=== PATIENT | female | born 1965 | race Caucasian/White ===

== ENCOUNTER 2017-02-28 04:56 | Inpatient (IN) | payer OTHER, MEDICARE ==
[2017-02-28] VITALS (9 sets, daily range): BP systolic 90–160; BP diastolic 52–82; PULSE 74–137; RESP 14–20; TEMP 98–99.7; O2SAT 98–100
[~2017-02-28] VITALS: Ht 160 cm; Wt 78.7 kg
[~2017-02-28 04:56] MED LIST: CEFU1TAB18 PO; CHOL50006 PO; CYMB30CA PO; HUMSS; INSULIN PUMP; LIOT5 PO; LIOT5TAB PO; LORA-392 PO; LORA-474 PO; MECL25 PO; ONDA4; ONDA4 PO; OXYC1SOL5 PO; SELE200T18 PO; SYNT75TA PO; TRAM50TA PO; VITA100020 PO
[2017-02-28] MEDS ORDERED: SODIUM CHLOR 0.9% 1000 ML INJ 1,000 ML IV ONE ×2 (05:11→05:41)
[2017-02-28] MEDS ORDERED: SODIUM CHLORIDE 0.9% FLUSH 10 ML FLUSH IVF PRN (05:15)
[2017-02-28] MEDS ORDERED: ONDANSETRON HCL 4 MG/2 ML VIAL IV PUSH ONE (05:15)
--- NOTE | 2017-02-28 05:15 | PD ---
HPI Chief Complaint: generalized malaise Time Seen by Provider: 05:05 Travel History International Travel<30 days: No Contact w/Intl Traveler<30days: No Traveled to known affect area: No History of Present Illness HPI 51-year-old female with history of insulin-dependent diabetes with insulin pump , there for evaluation of chills, cough, sore throat, nausea, vomiting, diarrhea , and abdominal pain. Symptoms started yesterday with sore throat and cough which was productive of yellowish sputum. She also been to the [facility] yesterday. She did not check her temperature and is unsure if she has had a fever. She woke up this morning and had 2 episodes of vomiting as well as several episodes of loose bowel movements with complaints of diffuse abdominal pain which is described as cramping, moderate, worse with movements and palpation. History of hysterectomy and cholecystectomy. She denies urinary symptoms. No vaginal bleeding or discharge. Her daughter is here and was recently diagnosed with pneumonia and pleurisy. Patient is also describing some substernal chest discomfort with coughing and worse with palpation. She denies history of cardiac disease. No history of DVT or PE. Her cough is productive of yellowish sputum. No hemoptysis. PFSH Past Medical History Autoimmune Disease: Yes Depression: Yes Cancer: No Cardiovascular Problems: Yes (BP RUNS LOW) Diabetes: Yes Diminished Hearing: No Endocrine: Yes (SHANE'S THYROIDITIS) Fibromyalgia: Yes Gastrointestinal Disorders: Yes (CILIAC) Genitourinary: No Immune Disorder: Yes Musculoskeletal: Yes (FIBROMYALGIA) Neurologic: Yes Psychiatric: Yes Reproductive: No Respiratory: No Thyroid Disease: Yes (HYPOTHRYROID) Past Surgical History Abdominal Surgery: Yes (CHOLECYSTECTOMY) Body Medical Devices: INSULIN PUMP Cholecystectomy: Yes Genitourinary Surgery: Yes (BLADDER SLING) Gynecologic Surgery: Yes (HYSTERECTOMY) Hysterectomy: Yes Insulin Pump: Yes Other Surgery: Yes (BLADDER MESH) Social History Alcohol Use: No Tobacco 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 Tirosint (Levothyroxine Sodium) 125 Mcg Cap 125 Mcg PO DAILY Tramadol (Tramadol HCl) 50 Mg Tab 50 Mg PO Q4H PRN Cymbalta DR (Duloxetine HCl) 30 Mg Capdr 30 Mg PO DAILY Review of Systems Except as stated in HPI: all other systems reviewed are Neg Physical Exam Narrative GENERAL: Well-developed, well-nourished, comfortable, no apparent distress. SKIN: Focused skin assessment warm/dry. No rash. HEAD: Atraumatic. Normocephalic. EYES: Pupils equal and round. No scleral icterus. No injection or drainage. ENT: No nasal bleeding or discharge. Mucous membranes pink and dry. Pharynx is erythematous without tonsillar exudates. Uvula is midline. Normal phonation. No drooling or stridor. NECK: Trachea midline. No JVD. No nuchal rigidity. CARDIOVASCULAR: Tachycardic, rate 130s, regular. RESPIRATORY: No accessory muscle use. Clear to auscultation. Breath sounds equal bilaterally. GASTROINTESTINAL: Abdomen soft, nondistended. Moderate diffuse tenderness without peritoneal signs. Small periumbilical hernia that is easily reducible. Normal bowel sounds. MUSCULOSKELETAL: No obvious deformities. No clubbing. No cyanosis. No edema. NEUROLOGICAL: Awake and alert. No obvious cranial nerve deficits. Motor grossly within normal limits. Normal speech. PSYCHIATRIC: Appropriate mood and affect; insight and judgment normal. Data Data Last Documented VS Vital Signs Date Time Temp Pulse Resp B/P (MAP) Pulse Ox O2 Delivery O2 Flow Rate FiO2 02/28/17 05:58 111 16 138/70 (92) 98 Room Air 02/28/17 05:01 98.6 Orders Orders Electrocardiogram (02/28/17 05:11) Ckmb (Isoenzyme) Profile (02/28/17 05:11) Complete Blood Count With Diff (02/28/17 05:11) Comprehensive Metabolic Panel (02/28/17 05:11) Magnesium (Mg) (02/28/17 05:11) Prothrombin Time / Inr (Pt) (02/28/17 05:11) Act Partial Throm Time (Ptt) (02/28/17 05:11) Troponin I (02/28/17 05:11) Chest, Single Ap (02/28/17 05:11) Ecg Monitoring (02/28/17 05:11) Iv Access Insert/Monitor (02/28/17 05:11) Oximetry (02/28/17 05:11) Sodium Chloride 0.9% Flush (Ns Flush) (02/28/17 05:15) Beta Hydroxybutyrate (Acetone) (02/28/17 05:11) Urinalysis - C+S If Indicated (02/28/17 05:11) Sodium Chlor 0.9% 1000 Ml Inj (Ns 1000 M (02/28/17 05:11) Sodium Chlor 0.9% 1000 Ml Inj (Ns 1000 M (02/28/17 05:41) Lipase (02/28/17 05:11) Ondansetron Inj (Zofran Inj) (02/28/17 05:15) Influenzae A/B Antigen (02/28/17 05:12) Group A Rapid Strep Screen (02/28/17 05:12) Ct Abd/Pel W Iv Contrast(Rout) (02/28/17 05:17) Diatrizoate Liq ( Gastroview Liq) (02/28/17 05:30) Oral Contrast - Adult (02/28/17 05:19) Strep Culture (Group A) (02/28/17 05:42) Labs Laboratory Tests Test 02/28/17 05:42 02/28/17 07:13 White Blood Count 4.6 TH/MM3 Red Blood Count 4.90 MIL/MM3 Hemoglobin 15.1 GM/DL Hematocrit 45.5 % Mean Corpuscular Volume 92.9 FL Mean Corpuscular Hemoglobin 30.9 PG Mean Corpuscular Hemoglobin Concent 33.2 % Red Cell Distribution Width 12.9 % Platelet Count 169 TH/MM3 Mean Platelet Volume 8.0 FL Neutrophils (%) (Auto) 76.3 % Lymphocytes (%) (Auto) 10.9 % Monocytes (%) (Auto) 9.0 % Eosinophils (%) (Auto) 0.8 % Basophils (%) (Auto) 3.0 % Neutrophils # (Auto) 3.6 TH/MM3 Lymphocytes # (Auto) 0.5 TH/MM3 Monocytes # (Auto) 0.4 TH/MM3 Eosinophils # (Auto) 0.0 TH/MM3 Basophils # (Auto) 0.1 TH/MM3 CBC Comment DIFF FINAL Differential Comment Prothrombin Time 9.6 SEC Prothromb Time International Ratio 0.9 RATIO Activated Partial Thromboplast Time 27.3 SEC Blood Urea Nitrogen 9 MG/DL Creatinine 0.73 MG/DL Random Glucose 216 MG/DL Total Protein 8.0 GM/DL Albumin 3.9 GM/DL Calcium Level 8.8 MG/DL Magnesium Level 2.1 MG/DL Alkaline Phosphatase 94 U/L Aspartate Amino Transf (AST/SGOT) 56 U/L Alanine Aminotransferase (ALT/SGPT) 45 U/L Total Bilirubin 0.6 MG/DL Sodium Level 135 MEQ/L Potassium Level 4.1 MEQ/L Chloride Level 100 MEQ/L Carbon Dioxide Level 24.9 MEQ/L Anion Gap 10 MEQ/L Estimat Glomerular Filtration Rate 84 ML/MIN Total Creatine Kinase 48 U/L Troponin I LESS THAN 0.02 NG/ML Lipase 79 U/L B-Hydroxybutyrate 0.82 MMOL/L [facility] Medical Decision Making Medical Screen Exam Complete: Yes Emergency Medical Condition: Yes Medical Record Reviewed: Yes Differential Diagnosis Influenza, viral illness, gastroenteritis, URI, pneumonia, bronchitis, strep pharyngitis, dehydration, DKA, acute intra-abdominal/surgical process. Narrative Course Initial vital signs show heart rate 137, blood pressure 112/82, pulse ox 100% on room air, oral temp of 98.6F. CBC: WBC 4.6, hemoglobin 15.1, hematocrit 45.5, platelets 169, neutrophils 76.3% . CMP is remarkable for random glucose 216, otherwise unremarkable. Bicarbonate is normal at 24.9. Cardiac enzymes are negative. Lipase is 79. Beta hydroxybutyrate is 0.82. At approximately 7:00 AM at the end of my shift the patient was signed out to Dr. Mane to follow up with CT abdomen pelvis and disposition the patient. At time of signout the patient points out an area on her right buttocks of erythema. There is some warmth and erythema without fluctuance or induration. No purulent drainage. There is a slight cellulitis. No ulceration. Patient will be started on bactrim for this. Scripts Sulfamethoxazole-Trimethoprim (Bactrim DS) 800-160 Mg Tab 1 TAB PO BID for Infection, #20 TAB 0 Refills Prov: Jorge Quintero MD 02/28/17 Jorge Quintero MD Feb 28, 2017 05:15
[2017-02-28] MEDS ORDERED: TIRO125C PO (05:24)
[2017-02-28] MEDS ORDERED: TRAM50TA PO (05:24)
[2017-02-28] MEDS ORDERED: NOVOLOGP2 SQ (05:24)
[2017-02-28] MEDS ORDERED: CYMB30CA PO (05:24)
[2017-02-28] MEDS ORDERED: DIATRIZOATE MEGLUM/DIATRIZOATE SOD 9 ML CUP PO ONE (05:30)
[2017-02-28 05:51] LABS: AUTOMATED NEUTROPHIL # 3.6 TH/MM3 (1.8-7.7); BASOPHIL # 0.1 TH/MM3 (0-0.2); EOSINOPHIL % 0.8 % (0.0-4.0); HEMATOCRIT 45.5 % (35.0-46.0); HEMOGLOBIN 15.1 GM/DL (11.6-15.3); LYMPH % 10.9 % (9.0-44.0); LYMPHOCYTE # 0.5 TH/MM3 (1.0-4.8); MEAN CELL VOLUME 92.9 FL (80.0-100.0); MEAN CORPUSCULAR HEMOGLOBIN 30.9 PG (27.0-34.0); MEAN CORPUSCULAR HGB CONC 33.2 % (32.0-36.0); MONOCYTE # 0.4 TH/MM3 (0-0.9); NEUT % 76.3 % (16.0-70.0); PLATELET COUNT 169 TH/MM3 (150-450); RED CELL DISTRIBUTION WIDTH 12.9 % (11.6-17.2); WHITE BLOOD COUNT 4.6 TH/MM3 (4.0-11.0)
[2017-02-28 05:59] LABS: CHLORIDE 100 MEQ/L (98-107); SODIUM (NA) 135 MEQ/L (136-145)
[2017-02-28 06:03] LABS: ALBUMIN 3.9 GM/DL (3.4-5.0); BICARBONATE 24.9 MEQ/L (21.0-32.0); BLOOD UREA NITROGEN 9 MG/DL (7-18); CALCIUM 8.8 MG/DL (8.5-10.1); GLUCOSE,RANDOM 216 MG/DL (74-106); INTERNATIONAL NORMALIZED RATIO 0.9 RATIO; LIPASE 79 U/L (73-393); MAGNESIUM 2.1 MG/DL (1.5-2.5); PROTHROMBIN TIME - PATIENT 9.6 SEC (9.8-11.6)
[2017-02-28 06:06] LABS: ALT (GPT) 45 U/L (10-53); AST (GOT) 56 U/L (15-37); CREATININE 0.73 MG/DL (0.50-1.00); GLOMERULAR FILTRATION RATE 84 ML/MIN (>89)
--- NOTE | 2017-02-28 06:06 | RADRPT ---
EXAM DATE/TIME: 02/28/2017 05:46 [facility] COMPARISON: CHEST SINGLE AP, June 15, 2015, 13:20. INDICATIONS : Chest pain. MEDICAL HISTORY : Diabetes mellitus type 1. vertigo, Hashimotos, thyroidis SURGICAL HISTORY : None. ENCOUNTER: Initial ACUITY: 1 day PAIN SCORE: 4/10 LOCATION: Bilateral chest FINDINGS: 2 portable frontal views of the chest show lungs to be hyperaerated. Lungs are clear. No effusions. C alcified granuloma left upper lobe. Heart is normal in size. Bony structures are unremarkable. CONCLUSION: Hyperinflation suggesting COPD. No acute infiltrate or effusion. Lyle Terry Jr., MD on February 28, 2017 at 6:04 Board Certified Radiologist. This report was verified electronically.
[2017-02-28 06:08] LABS: TOTAL BILIRUBIN ADULT 0.6 MG/DL (0.2-1.0)
[2017-02-28 06:09] LABS: ALKALINE PHOSPHATASE 94 U/L (45-117)
[2017-02-28 06:11] LABS: TROPONIN I LESS THAN 0.02 NG/ML (0.02-0.05)
[2017-02-28 07:17] LABS: BILIRUBIN, URINE NEG (NEG); BLOOD, URINE NEG (NEG); GLUCOSE,URINE 500 mg/dL (NEG); KETONE, URINE TRACE mg/dL (NEG); NITRITE,URINE NEG (NEG); URINE LEUKOCYTE ESTERASE NEG (NEG)
[2017-02-28] MEDS ORDERED: BACT800T5 PO (07:24)
[2017-02-28 07:26] LABS: URINE COLOR STRAW (YELLW/STRAW)
[2017-02-28 07:27] LABS: BACTERIA, URINE RARE /hpf; SQUAMOUS EPITHELIAL CELL URINE 0-5 /hpf (0-5); WBC, URINE 0-2 /hpf (0-5)
[2017-02-28] MEDS ORDERED: IOHEXOL 350 MG/ML 10 ML VIAL (for RAD DIAG) IVCONTRAST ONE (07:35)
--- NOTE | 2017-02-28 07:55 | RADRPT ---
EXAM DATE/TIME: 02/28/2017 07:23 [facility] COMPARISON: No previous studies available for comparison. INDICATIONS : Bilateral lower quadrant pain. Right groin pain. Nausea, vomiting, diarrhea, and weakness. IV CONTRAST: 85 cc Omnipaque 350 (iohexol) IV ORAL CONTRAST: Partial prescribed oral contrast ingested. RADIATION DOSE: 11.32 CTDIvol (mGy) MEDICAL HISTORY : Irritiable bowel syndrome. Diabetes mellitus type 2. SURGICAL HISTORY : Hysterectomy. Cholecystectomy.Bladder sling. ENCOUNTER: Initial ACUITY: 2 days PAIN SCALE: 5/10 LOCATION: Bilateral lower quadrant TECHNIQUE: Volumetric scanning of the abdomen and pelvis was performed. Using automated exposure control and ad justment of the mA and/or kV according to patient size, radiation dose was kept as low as reasonably achievable to obtain optimal diagnostic quality images. DICOM format image data is available electro nically for review and comparison. FINDINGS: LOWER LUNGS: The visualized lower lungs are clear. LIVER: Homogeneous density without lesion. There is no dilation of the biliary tree. No calcified gallston es. SPLEEN: Normal size without lesion. PANCREAS: Within normal limits. KIDNEYS: Normal in size and shape. There is no mass, stone or hydronephrosis. ADRENAL GLANDS: Within normal limits. VASCULAR: There is no aortic aneurysm. BOWEL/MESENTERY: Appendix is distended and fluid-filled and has mild mucosal enhancement. However, minimal wall thicke jeremy and periappendiceal stranding. No abscess, perforation or obstruction. ABDOMINAL WALL: Within normal limits. RETROPERITONEUM: There is no lymphadenopathy. BLADDER: No wall thickening or mass. REPRODUCTIVE: There are bilateral ovarian cysts and measured 22 mm on the right and 19 mm on the left. Previous hys terectomy. INGUINAL: There is no lymphadenopathy or hernia. MUSCULOSKELETAL: Within normal limits for patient age. CONCLUSION: 1. CT findings consistent with early or mild acute appendicitis in the proper clinical setting. 2. Bilateral ovarian cysts. Previous hysterectomy. There is no free fluid or perceptible adnexal infl ammatory changes. Hira Zhang MD on February 28, 2017 at 7:48 Board Certified Radiologist. This report was verified electronically.
--- NOTE | 2017-02-28 08:26 | PD ---
Data Data Last Documented VS Vital Signs Date Time Temp Pulse Resp B/P (MAP) Pulse Ox O2 Delivery O2 Flow Rate FiO2 02/28/17 05:58 111 16 138/70 (92) 98 Room Air 02/28/17 05:01 98.6 Orders Orders Electrocardiogram (02/28/17 05:11) Ckmb (Isoenzyme) Profile (02/28/17 05:11) Complete Blood Count With Diff (02/28/17 05:11) Comprehensive Metabolic Panel (02/28/17 05:11) Magnesium (Mg) (02/28/17 05:11) Prothrombin Time / Inr (Pt) (02/28/17 05:11) Act Partial Throm Time (Ptt) (02/28/17 05:11) Troponin I (02/28/17 05:11) Chest, Single Ap (02/28/17 05:11) Ecg Monitoring (02/28/17 05:11) Iv Access Insert/Monitor (02/28/17 05:11) Oximetry (02/28/17 05:11) Sodium Chloride 0.9% Flush (Ns Flush) (02/28/17 05:15) Beta Hydroxybutyrate (Acetone) (02/28/17 05:11) Urinalysis - C+S If Indicated (02/28/17 05:11) Sodium Chlor 0.9% 1000 Ml Inj (Ns 1000 M (02/28/17 05:11) Sodium Chlor 0.9% 1000 Ml Inj (Ns 1000 M (02/28/17 05:41) Lipase (02/28/17 05:11) Ondansetron Inj (Zofran Inj) (02/28/17 05:15) Influenzae A/B Antigen (02/28/17 05:12) Group A Rapid Strep Screen (02/28/17 05:12) Ct Abd/Pel W Iv Contrast(Rout) (02/28/17 05:17) Diatrizoate Liq ( Gastroview Liq) (02/28/17 05:30) Oral Contrast - Adult (02/28/17 05:19) Strep Culture (Group A) (02/28/17 05:42) Iohexol 350 Inj (Omnipaque 350 Inj) (02/28/17 07:35) Ondansetron Inj (Zofran Inj) (02/28/17 08:30) Ampicillin-Sulbactam Inj (Unasyn Inj) (02/28/17 08:30) Admit Order (Ed Use Only) (02/28/17 08:21) Consult Kianna Nfs (02/28/17 ) Labs Laboratory Tests Test 02/28/17 05:42 02/28/17 07:13 White Blood Count 4.6 TH/MM3 Red Blood Count 4.90 MIL/MM3 Hemoglobin 15.1 GM/DL Hematocrit 45.5 % Mean Corpuscular Volume 92.9 FL Mean Corpuscular Hemoglobin 30.9 PG Mean Corpuscular Hemoglobin Concent 33.2 % Red Cell Distribution Width 12.9 % Platelet Count 169 TH/MM3 Mean Platelet Volume 8.0 FL Neutrophils (%) (Auto) 76.3 % Lymphocytes (%) (Auto) 10.9 % Monocytes (%) (Auto) 9.0 % Eosinophils (%) (Auto) 0.8 % Basophils (%) (Auto) 3.0 % Neutrophils # (Auto) 3.6 TH/MM3 Lymphocytes # (Auto) 0.5 TH/MM3 Monocytes # (Auto) 0.4 TH/MM3 Eosinophils # (Auto) 0.0 TH/MM3 Basophils # (Auto) 0.1 TH/MM3 CBC Comment DIFF FINAL Differential Comment Prothrombin Time 9.6 SEC Prothromb Time International Ratio 0.9 RATIO Activated Partial Thromboplast Time 27.3 SEC Blood Urea Nitrogen 9 MG/DL Creatinine 0.73 MG/DL Random Glucose 216 MG/DL Total Protein 8.0 GM/DL Albumin 3.9 GM/DL Calcium Level 8.8 MG/DL Magnesium Level 2.1 MG/DL Alkaline Phosphatase 94 U/L Aspartate Amino Transf (AST/SGOT) 56 U/L Alanine Aminotransferase (ALT/SGPT) 45 U/L Total Bilirubin 0.6 MG/DL Sodium Level 135 MEQ/L Potassium Level 4.1 MEQ/L Chloride Level 100 MEQ/L Carbon Dioxide Level 24.9 MEQ/L Anion Gap 10 MEQ/L Estimat Glomerular Filtration Rate 84 ML/MIN Total Creatine Kinase 48 U/L Troponin I LESS THAN 0.02 NG/ML Lipase 79 U/L B-Hydroxybutyrate 0.82 MMOL/L Urine Collection Type CLEAN CATCH Urine Color STRAW Urine Turbidity CLEAR Urine pH 6.0 Urine Specific [place] 1.005 Urine Protein NEG mg/dL Urine Glucose (UA) 500 mg/dL Urine Ketones TRACE mg/dL Urine Occult Blood NEG Urine Nitrite NEG Urine Bilirubin NEG Urine Leukocyte Esterase NEG Urine WBC 0-2 /hpf Urine Squamous Epithelial Cells 0-5 /hpf Urine Bacteria RARE /hpf Microscopic Urinalysis Comment CULT NOT INDICATED MDM Supervised Visit with [facility]ON: No Narrative Course This case checked out to me at [address] Quintero. I have reviewed the entirety of the workup with the patient and reevaluated her. She is nauseous and vomiting now. Her abdomen reveals right lower quadrant tenderness. CT scan suggests appendicitis given the fluid-filled dilated appendix with a bit of stranding around it. I reviewed in detail with Dr. Alvarez, general surgeon. He will plan for appendectomy here. He recommends medical admission and I have reviewed with Dr. Ann who will admit. I'm going to recommend she cut her basal insulin rate and half given that she will be nothing by mouth for a while. I gave her dose of Zofran and IV Unasyn Diagnosis Primary Impression: Acute appendicitis Qualified Codes: K35.3 - Acute appendicitis with localized peritonitis Additional Impression: Diabetes mellitus type 1 Qualified Codes: E10.9 - Type 1 diabetes mellitus without complications Admitting Information Admitting Physician Requests: Admit Scripts Sulfamethoxazole-Trimethoprim (Bactrim DS) 800-160 Mg Tab 1 TAB PO BID for Infection, #20 TAB 0 Refills Prov: Jorge Quintero MD 02/28/17 Matt Mane MD Feb 28, 2017 08:26
[2017-02-28] MEDS ORDERED: ONDANSETRON HCL 4 MG/2 ML VIAL IVP ONE (08:30)
[2017-02-28] MEDS ORDERED: AMPICILLIN-SULBACTAM INJ 3 GM in SODIUM CHLORIDE 0.9% INJ 100 ML IV ONE (08:30)
[2017-02-28] MEDS ORDERED: SODIUM CHLORIDE 0.9% FLUSH 10 ML FLUSH IV FLUSH PRN (09:15)
[2017-02-28] MEDS ORDERED: MORPHINE SULFATE 2 MG/ML INJ IV PUSH PRN (09:30)
[2017-02-28] MEDS: SODIUM CHLOR 0.9% 1000 ML INJ 1,000 ML IV SCH ×2 (09:44→17:45)
[2017-02-28] MEDS: ONDANSETRON HCL 4 MG/2 ML VIAL IV PUSH PRN ×2 (09:53→17:00)
[2017-02-28] MEDS ORDERED: PROMETHAZINE INJ 25 MG/ML VIAL IM PRN (12:15)
[2017-02-28] MEDS ORDERED: KETOROLAC TROMETHAMINE 30 MG/ML (IVP) VIAL IV PUSH ONE (13:00)
[2017-02-28] MEDS ORDERED: BUPIVACAINE/EPINEPHRINE 0.5% PF 30 ML VIAL ONE (14:02)
[2017-02-28] MEDS ORDERED: DEXTROSE 50% IN WATER 50 ML VIAL(D50) IV PUSH PRN (14:15)
[2017-02-28] MEDS ORDERED: GLUCAGON 1 MG/ML VIAL OTHER PRN (14:15)
[2017-02-28] MEDS ORDERED: INFO FOR PHARMACY/READ COMMENT SCH (14:15)
[2017-02-28] MEDS ORDERED: GLUCAGON 1 MG/ML VIAL IM PRN (14:15)
--- NOTE | 2017-02-28 14:18 | HHI.HP ---
[facility] Service [facility] Primary Care Physician Non-Staff Admission Diagnosis acute appendicitis Diagnoses: Chief Complaint: Abdominal pain and malaise Travel History International Travel<30 Days: No Contact w/Intl Traveler <30 Da: No Traveled to Known Affected Are: No History of Present Illness This patient is a 51-year-old female with type 1 diabetes mellitus who had chills and cough and nausea for one day. She thought she had the flu. She had several episodes of emesis and loose stools with diffuse abdominal pain accompanying this. The pain was cramping and moderate and worse with movement and worse with deep palpation. She does have a history of multiple abdominal surgeries including hysterectomy and bladder sling. He was evaluated in the emergency room.And found to have no white cell count no fever or no abnormal vital signs but she did have on evaluation of her abdomen significant pain and not toward a CT abdomen pelvis which did show early changes facility acute appendicitis. Patient has since been admitted. She's been given IV morphine with improvement of pain and is recommended for surgical intervention. Review of Systems Constitutional: DENIES: Diaphoretic episodes, Fatigue, Fever, Weight gain, Weight loss, Chills, Dizziness, Change in appetite, Night Sweats Endocrine: DENIES: Heat/cold intolerance Eyes: DENIES: Blurred vision, Diplopia, Eye inflammation, Eye pain, Vision loss , Photosensitivity, Double Vision Ears, nose, mouth, throat: DENIES: Tinnitus, Hearing loss, Vertigo, Nasal discharge, Oral lesions, Throat pain, Hoarseness, Ear Pain, Running Nose, Epistaxis, Sinus Pain, Toothache, Odynophagia Respiratory: DENIES: Apneas, Cough, Snoring, Wheezing, Hemoptysis, Sputum production, Shortness of breath Cardiovascular: DENIES: Chest pain, Palpitations, Syncope, Dyspnea on Exertion , PND, Lower Extremity Edema, Orthopnea, Claudication Gastrointestinal: COMPLAINS OF: Abdominal pain, Nausea, Vomiting, DENIES: Black stools, Bloody stools, Constipation, Diarrhea Genitourinary: DENIES: Abnormal vaginal bleeding, Dysmenorrhea, Dyspareunia, Sexual dysfunction, Urinary frequency, Urinary incontinence, Urgency, Hematuria , Dysuria, Nocturia, Vaginal discharge Musculoskeletal: DENIES: Joint pain, Muscle aches, Stiffness, Joint Swelling, Back pain, Neck pain Integumentary: DENIES: Abnormal pigmentation, Pruritus, Rash, Nail changes, Breast masses, Breast skin changes, Nipple discharge Hematologic/lymphatic: DENIES: Bruising, Lymphadenopathy Immunologic/allergic: DENIES: Eczema, Urticaria Neurologic: DENIES: Abnormal gait, Headache, Localized weakness, Paresthesias, Seizures, Speech Problems, Tremor, Poor Balance Psychiatric: DENIES: Anxiety, Confusion, Mood changes, Depression, Hallucinations, Agitation, Suicidal Ideation, Homicidal Ideation, Delusions Except as stated in HPI: all other systems reviewed are Neg Past Family Social History Past Medical History Diabetes mellitus type 1 Fibromyalgia Hypothyroidism/ Karel's thyroiditis Past Surgical History Bladder surgery Hysterectomy Cholecystectomy Insulin-dependent pump implantation Reported Medications Reviewed in the EMR Allergies: Coded Allergies: levofloxacin (Unverified Allergy, Severe, SHORTNESS OF BREATH, 02/28/17) pregabalin (Verified Adverse Reaction, Severe, Psychosis, 02/28/17) Active Ordered Medications Reviewed in the EMR Family History Both parents are alive and well Social History No tobacco, no alcohol, lives with her family Physical Exam Vital Signs Vital Signs Date Time Temp Pulse Resp B/P (MAP) Pulse Ox O2 Delivery O2 Flow Rate FiO2 02/28/17 11:50 99.7 98 20 119/59 (79) 99 02/28/17 11:45 02/28/17 11:15 98.2 103 18 123/70 (87) 98 Room Air 02/28/17 09:55 98.7 108 18 118/57 (77) 98 Room Air 02/28/17 08:25 118 18 160/78 (105) 100 Room Air 02/28/17 05:58 111 16 138/70 (92) 98 Room Air 02/28/17 05:26 Room Air 02/28/17 05:01 98.6 137 14 112/82 (92) 100 Physical Exam GENERAL: This is a well-nourished, well-developed patient, in no apparent distress. SKIN: No rashes, ecchymoses or lesions. Cool and dry. HEAD: Atraumatic. Normocephalic. No temporal or scalp tenderness. EYES: Pupils equal round and reactive. Extraocular motions intact. No scleral icterus. No injection or drainage. ENT: Nose without bleeding, purulent drainage or septal hematoma. Throat without erythema, tonsillar hypertrophy or exudate. Uvula midline. Airway patent. NECK: Trachea midline. No JVD or lymphadenopathy. Supple, nontender, no meningeal signs. CARDIOVASCULAR: Regular rate and rhythm without murmurs, gallops, or rubs. RESPIRATORY: Clear to auscultation. Breath sounds equal bilaterally. No wheezes , rales, or rhonchi. GASTROINTESTINAL: Abdomen soft, hypoactive bowel sounds with tenderness to deep palpation. No hepato-splenomegaly, or palpable masses. No guarding. MUSCULOSKELETAL: Extremities without clubbing, cyanosis, or edema. No joint tenderness, effusion, or edema noted. No calf tenderness. Negative Homans sign bilaterally. NEUROLOGICAL: Awake and alert. Cranial nerves II through XII intact. Motor and sensory grossly within normal limits. Five out of 5 muscle strength in all muscle groups. Normal speech. Laboratory Laboratory Tests Test 02/28/17 05:42 02/28/17 07:13 White Blood Count 4.6 Red Blood Count 4.90 Hemoglobin 15.1 Hematocrit 45.5 Mean Corpuscular Volume 92.9 Mean Corpuscular Hemoglobin 30.9 Mean Corpuscular Hemoglobin Concent 33.2 Red Cell Distribution Width 12.9 Platelet Count 169 Mean Platelet Volume 8.0 Neutrophils (%) (Auto) 76.3 Lymphocytes (%) (Auto) 10.9 Monocytes (%) (Auto) 9.0 Eosinophils (%) (Auto) 0.8 Basophils (%) (Auto) 3.0 Neutrophils # (Auto) 3.6 Lymphocytes # (Auto) 0.5 Monocytes # (Auto) 0.4 Eosinophils # (Auto) 0.0 Basophils # (Auto) 0.1 CBC Comment DIFF FINAL Differential Comment Prothrombin Time 9.6 Prothromb Time International Ratio 0.9 Activated Partial Thromboplast Time 27.3 Blood Urea Nitrogen 9 Creatinine 0.73 Random Glucose 216 Total Protein 8.0 Albumin 3.9 Calcium Level 8.8 Magnesium Level 2.1 Alkaline Phosphatase 94 Aspartate Amino Transf (AST/SGOT) 56 Alanine Aminotransferase (ALT/SGPT) 45 Total Bilirubin 0.6 Sodium Level 135 Potassium Level 4.1 Chloride Level 100 Carbon Dioxide Level 24.9 Anion Gap 10 Estimat Glomerular Filtration Rate 84 Total Creatine Kinase 48 Troponin I LESS THAN 0.02 Lipase 79 B-Hydroxybutyrate 0.82 Urine Collection Type CLEAN CATCH Urine Color STRAW Urine Turbidity CLEAR Urine pH 6.0 Urine Specific Norton 1.005 Urine Protein NEG Urine Glucose (UA) 500 Urine Ketones TRACE Urine Occult Blood NEG Urine Nitrite NEG Urine Bilirubin NEG Urine Leukocyte Esterase NEG Urine WBC 0-2 Urine Squamous Epithelial Cells 0-5 Urine Bacteria RARE Microscopic Urinalysis Comment CULT NOT INDICATED Date/Time Source Procedure Growth Status 02/28/17 05:42 Throat Group A Streptococcus Screen Pending Received Result Diagram: 02/28/1754102/28/17541 Imaging Last 24 hours Impressions Abdomen/Pelvis CT 02/28/17516 Signed Impressions: Service Date/Time: February 07:23 - CONCLUSION: 1. CT findings consistent with early or mild acute appendicitis in the proper clinical setting. 2. Bilateral ovarian cysts. Previous hysterectomy. There is no free fluid or perceptible adnexal inflammatory changes. Hira Zhang MD Chest X-Ray 02/28/17510 Signed Impressions: Service Date/Time: February 05:46 - CONCLUSION: Hyperinflation suggesting COPD. No acute infiltrate or effusion. Lyle Terry Jr., MD Caprini VTE Risk Assessment Caprini VTE Risk Assessment: Mod/High Risk (score >= 2) Caprini Risk Assessment Model Point Value = 1 Point Value = 2 Point Value = 3 Point Value = 5 Age 41-60 Minor surgery BMI > 25 kg/m2 Swollen legs Varicose veins or History of unexplained or recurrent spontaneous Oral contraceptives or hormone replacement Sepsis (< 1 month) Serious lung disease, including pneumonia (< 1 month) Abnormal pulmonary function Acute myocardial infarction Congestive heart failure (< 1 month) History of inflammatory bowel disease Medical patient at bed rest Age 61-74 Arthroscopic surgery Major open surgery (> 45 min) Laparoscopic surgery (> 45 min) Malignancy Confined to bed (> 72 hours) Immobilizing plaster cast Central venous access Age >= 75 History of VTE Family history of VTE Factor V Leiden Prothrombin [id number] Lupus anticoagulant Anticardiolipin antibodies Elevated serum homocysteine Heparin-induced thrombocytopenia Other congenital or acquired thrombophilia Stroke (< 1 month) Elective arthroplasty Hip, pelvis, or leg fracture Acute spinal cord injury (< 1 month) Prophylaxis Regimen Total Risk Factor Score Risk Level Prophylaxis Regimen 0-1 Low Early ambulation 2 Moderate Order ONE of the following: *Sequential Compression Device (SCD) *Heparin 5000 units SQ BID 3-4 Higher Order ONE of the following medications: *Heparin 5000 units SQ TID *Enoxaparin/Lovenox 40 mg SQ daily (WT < 150 kg, CrCl > 30 mL/min) *Enoxaparin/Lovenox 30 mg SQ daily (WT < 150 kg, CrCl > 10-29 mL/min) *Enoxaparin/Lovenox 30 mg SQ BID (WT < 150 kg, CrCl > 30 mL/min) AND/OR *Sequential Compression Device (SCD) 5 or more Highest Order ONE of the following medications: *Heparin 5000 units SQ TID (Preferred with Epidurals) *Enoxaparin/Lovenox 40 mg SQ daily (WT < 150 kg, CrCl > 30 mL/min) *Enoxaparin/Lovenox 30 mg SQ daily (WT < 150 kg, CrCl > 10-29 mL/min) *Enoxaparin/Lovenox 30 mg SQ BID (WT < 150 kg, CrCl > 30 mL/min) AND *Sequential Compression Device (SCD) Assessment and Plan Problem List: (1) Diabetes mellitus type 1 ICD Code: E10.9 - Type 1 diabetes mellitus without complications Status: Acute Plan: Patient on a sliding scale with basal insulin for her diabetes. She has been diabetic for 26 years. She will continue to assist in her management with keeping blood sugars over 200 perioperatively (2) Acute appendicitis ICD Code: K35.80 - Unspecified acute appendicitis Status: Acute Plan: As found on CT Gen. surgery to follow for possible surgical intervention Continue with empiric antibiotics, IV morphine Bowel rest and IV hydration Code Status full code Physician Certification 2 Midnight Certification Type: Admission for Inpatient Services Order for Inpatient Services The services are ordered in accordance with Medicare regulations or non- Medicare payer requirements, as applicable. In the case of services not specified as inpatient-only, they are appropriately provided as inpatient services in accordance with the 2-midnight benchmark. Estimated LOS (days): 3 3 days is the estimated time the patient will need to remain in the hospital, assuming treatment plan goals are met and no additional complications. Post-Hospital Plan: Home Problem Qualifiers (1) Diabetes mellitus type 1: Qualified Codes: E10.9 - Type 1 diabetes mellitus without complications (2) Acute appendicitis: Qualified Codes: K35.3 - Acute appendicitis with localized peritonitis Ellie Ann MD Feb 28, 2017 14:18
--- NOTE | 2017-02-28 15:20 | HHI.PR ---
Immediate Post Op Note Procedure Date: Feb 28, 2017 Pre Op Diagnosis: acute appendicitis Post Op Diagnosis: same Surgeon: Vamsi Alvarez MD Chief Investment Officer(s): see or sheet Procedure: lap appy Findings: inflamed appendix Complications: none Specimen(s) removed: appendix Estimated blood loss: 5cc Anesthesia: General Drains: None Patient to: PACU Patient Condition: Good Vamsi Alvarez MD Feb 28, 2017 15:20
[2017-02-28] MEDS ORDERED: traMADol HCL 50 MG TAB PO PRN (16:00)
[2017-02-28] MEDS: INSULIN ASPART SUPPLEMENTAL SCALE SQ SCH ×2 (16:01→17:23)
--- NOTE | 2017-02-28 16:15 | MB ---
cc: HUI GONSALEZ MD DATE OF CONSULTATION: 02/28/2017 REASON FOR CONSULTATION Abdominal pain, acute appendicitis. HISTORY OF PRESENT ILLNESS The patient is a 51-year-old female with several medical issues including type 1 diabetes. She presented with acute onset of nausea, vomiting, abdominal pain and diarrhea. The abdominal pain started within the last 24 hours. She noted the abdominal pain was somewhat diffuse but localized to the right lower quadrant, initially 7 out of 10, currently a 8 out of 10, some improvement with IV pain medication, however, still persistent. The patient was at home and stated the pain would not improve and given the significance of the other symptoms she decided to come to the emergency department with evaluation including CT scan showing acute appendicitis. Therefore, surgical consultation was done. PAST MEDICAL HISTORY 1. Diabetes type 1. 2. Fibromyalgia. 3. Hypothyroidism. 4. Karel's thyroiditis. PAST SURGICAL HISTORY 1. Bladder surgery. 2. Hysterectomy. 3. Cholecystectomy. 4. Insulin pump. MEDICATIONS See EMR. ALLERGIES LEVOFLOXACIN, PREGABALIN. SOCIAL HISTORY Denies smoking, ETOH or IVDA. FAMILY HISTORY Denies diabetes or hypertension. REVIEW OF SYSTEMS GENERAL: Denies eye pain, ear pain or fever. HEENT: Denies rashes or ecchymosis, eye lesions. Head is normocephalic. Denies any masses. NECK: Denies swelling or pain. RESPIRATORY: Denies cough or wheeze. HEART: Denies palpitation or chest pain. ABDOMEN: Complains of nausea, vomiting, abdominal pain. : Denies dysuria, hematuria. ENDOCRINE: Denies polyuria, polydipsia. EXTREMITIES: Denies arthralgia, myalgias. NEUROLOGIC: Denies numbness or tingling. PSYCHE: Denies change in mood or sensorium. PHYSICAL EXAMINATION GENERAL: The patient is in no acute distress. VITAL SIGNS: Temperature 99.7, pulse 98, respirations 20, blood pressure 119/59, saturation 99%. HEENT: Pupils equal, round, reactive. NECK: Supple. Trachea midline. LUNGS: Bilateral expansion. Clear. HEART: S1-S2, regular. ABDOMEN: Soft, positive tenderness to palpation of right lower quadrant. Minimal rebound, otherwise soft. Healed surgical scars. EXTREMITIES: Warm, well-perfused. No edema. BACK: Normal curve. No step-off. INTEGUMENT: No obvious skin masses or lesions. NEUROLOGIC: GCS 15, 5/5 motor in all extremities. PSYCHE: Appropriate mood, appropriate insight. LABORATORY DIAGNOSTIC DATA WBC 4.6, hemoglobin 15.1, hematocrit 45.5, platelets 169. Sodium 135, potassium 4.1, BUN 9, creatinine 0.7, calcium 8.8, T-bili 0.6, AST 56, ALT 45, lipase 79, INR is 0.9. IMAGING STUDIES CT reviewed by myself showing a distended appendix with some stranding, inflammatory changes, concern for acute appendicitis, no free fluid or air. ASSESSMENT The patient is a 51-year-old female who presents with acute onset of appendicitis. PLAN After full clinical, radiologic, laboratory workup, the patient with above-named issues including acute appendicitis. At this point the patient needs to be n.p.o., IV fluids, pain control. Will plan for laparoscopic appendectomy. Discussed with the patient and family at bedside, stated understanding and agreed and would like to proceed. We will can continue with pain control, antibiotics and again will plan for operative intervention. MD MAEVE Bullard/TLJulieta /3:03 PM /3:19 PM
[2017-02-28] MEDS ORDERED: MORPHINE SULFATE 4 MG/ML INJ ONE (17:09)
[2017-02-28] MEDS: DOCUSATE SODIUM 50 MG/SENNA 8.6 MG TAB PO SCH (20:19)
[2017-02-28] MEDS: SODIUM CHLORIDE 0.9% FLUSH 10 ML FLUSH IV FLUSH SCH (20:19)
[2017-02-28] MEDS ORDERED: BISACODYL EC 5 MG TABEC PO SCH (21:00)
[2017-02-28] MEDS: POLYETHYLENE GLYCOL 17 GM PKG PO SCH (21:45)
[2017-03-01] VITALS: BP 107/52; PULSE 121; RESP 18; TEMP 100; O2SAT 96
[2017-03-01] MEDS ORDERED: IBUPROFEN 600 MG TAB PO PRN (00:15)
[2017-03-01] MEDS: SODIUM CHLOR 0.9% 1000 ML INJ 1,000 ML IV SCH (03:39)
[2017-03-01 04:00] VITALS: BP 103/58; PULSE 88; RESP 20; TEMP 99.1; O2SAT 96
[2017-03-01] MEDS ORDERED: LEVOTHYROXINE SODIUM 125 MCG TAB PO SCH (06:00)
--- NOTE | 2017-03-01 06:13 | MP ---
cc: HUI GONSALEZ MD DATE OF SURGERY 02/28/2017 PREOPERATIVE DIAGNOSIS Acute appendicitis, POSTOPERATIVE DIAGNOSIS Acute appendicitis. Constipation. SURGEON Laparoscopic appendectomy DOOR FRAMER See OR sheet. ANESTHESIA GETA. IV FLUIDS See anesthesia sheet. ESTIMATED BLOOD LOSS 5 cc. DRAINS None. COMPLICATIONS None. WOUND CLASSIFICATION Clean/contaminated. SPECIMENS Appendix. FINDINGS Mildly distended distal appendix. Constipation. INDICATION The patient is a 51-year-old female who presents with acute onset of abdominal pain. She states the pain was somewhat diffuse but localized to the right lower quadrant. CT scan findings with concerns for a thickened, dilated appendix. Therefore decision was made for laparoscopic appendectomy. DETAILS OF PROCEDURE The patient was taken to the operating room suite, placed in supine position. She was prepped and draped in the usual sterile fashion after induction with general endotracheal anesthesia. Brief time-out was done stating the correct patient, procedure and surgical site. We were all in agreement with this. Attention was directed to the umbilicus where a stab-ricky incision was made with an 11-blade, local anesthetic injected. An OptiView 5-mm port was used and entered through the abdomen, the abdomen insufflated to 15-mm pneumoperitoneum. On inspection there was no evidence of injury. Two other ports were placed, one suprapubic followed by left lower quadrant 12-mm. The patient was placed in reverse Trendelenburg, airplaned to the left. Identification of the right lower quadrant appendix. The appendiceal base was relatively thin and normal. The appendiceal tip was somewhat dilated, therefore continuation of appendectomy, a small window made at the base of the mesoappendix with monopolar electro Bovie cautery. A MICAH-35 stapler was used to transect the base of the mesoappendix and a MICAH stapler was used to transect the base of the appendix. Hemostasis was obtained. Appendix placed in the appendiceal bag and removed from the abdomen through the left lower quadrant trocar site. On further examination there was noted to be some constipation and hardened stool in the sigmoid. There was no evidence of free fluid and no other abnormalities noted. The abdomen was then desufflated. The 12-mm trocar was closed with a 0 Vicryl. 4-0 Monocryl was used to close the subcuticular layer incisions, then sterile dressings including Dermabond was placed. The patient tolerated the procedure well. There was no intraoperative complication. All lap and instrument counts were correct at the end of the procedure. The patient tolerated the procedure well. The patient was extubated and taken stable to the PACU. MD MAEVE Bullard/CARRIE /5:21 PM /5:40 AM
[2017-03-01 08:00] VITALS: BP 99/62; PULSE 76; RESP 18; TEMP 98.5; O2SAT 97
[2017-03-01] MEDS: INSULIN ASPART SUPPLEMENTAL SCALE SQ SCH (08:00)
[2017-03-01 08:56] LABS: AUTOMATED NEUTROPHIL # 2.5 TH/MM3 (1.8-7.7); BASOPHIL % 0.9 % (0.0-2.0); EOSINOPHIL % 0.4 % (0.0-4.0); HEMATOCRIT 33.2 % (35.0-46.0); HEMOGLOBIN 10.7 GM/DL (11.6-15.3); LYMPH % 25.6 % (9.0-44.0); MEAN CELL VOLUME 95.2 FL (80.0-100.0); MEAN CORPUSCULAR HEMOGLOBIN 30.7 PG (27.0-34.0); MEAN CORPUSCULAR HGB CONC 32.3 % (32.0-36.0); MEAN PLATELET VOLUME 7.7 FL (7.0-11.0); MONO % 10.6 % (0.0-8.0); MONOCYTE # 0.4 TH/MM3 (0-0.9); NEUT % 62.5 % (16.0-70.0); PLATELET COUNT 112 TH/MM3 (150-450); RED BLOOD COUNT 3.49 MIL/MM3 (4.00-5.30); RED CELL DISTRIBUTION WIDTH 12.9 % (11.6-17.2); WHITE BLOOD COUNT 3.9 TH/MM3 (4.0-11.0)
[2017-03-01] MEDS: DOCUSATE SODIUM 50 MG/SENNA 8.6 MG TAB PO SCH (09:00)
[2017-03-01] MEDS ORDERED: DULoxetine HCl DR 30 MG CAP PO SCH (09:00)
[2017-03-01] MEDS: SODIUM CHLORIDE 0.9% FLUSH 10 ML FLUSH IV FLUSH SCH (09:00)
[2017-03-01] MEDS: POLYETHYLENE GLYCOL 17 GM PKG PO SCH (09:00)
[2017-03-01] MEDS ORDERED: PERI PO (11:33)
--- NOTE | 2017-03-01 11:34 | HHI.DCPOC ---
Discharge Care Plan Diagnosis: (1) Constipation (2) Diabetes mellitus type 1 (3) Acute appendicitis Goals to Promote Your Health * To prevent worsening of your condition and complications * To maintain your health at the optimal level Directions to Meet Your Goals Take your medications as prescribed Follow your dietary instruction Follow activity as directed Keep your appointments as scheduled Take your immunizations and boosters as scheduled If your symptoms worsen call your PCP, if no PCP go to Urgent Care Center or Emergency Room Smoking is Dangerous to Your Health. Avoid second hand smoke Call the 24-hour hour crisis hotline for domestic abuse at Ellie Ann MD Mar 01, 2017 11:34
--- NOTE | 2017-03-01 11:37 | HHI.DS ---
Discharge Summary Admission Date Feb 28, 2017 at 08:22 Discharge Date: Mar 01, 2017 Admitting Diagnosis acute appendicitis (1) Diabetes mellitus type 1 ICD Code: E10.9 - Type 1 diabetes mellitus without complications Status: Acute (2) Acute appendicitis ICD Code: K35.80 - Unspecified acute appendicitis Status: Acute Procedures appendectomy Brief History - From Admission This patient is a 51-year-old female with type 1 diabetes mellitus who had chills and cough and nausea for one day. She thought she had the flu. She had several episodes of emesis and loose stools with diffuse abdominal pain accompanying this. The pain was cramping and moderate and worse with movement and worse with deep palpation. She does have a history of multiple abdominal surgeries including hysterectomy and bladder sling. He was evaluated in the emergency room.And found to have no white cell count no fever or no abnormal vital signs but she did have on evaluation of her abdomen significant pain and not toward a CT abdomen pelvis which did show early changes facility acute appendicitis. Patient has since been admitted. She's been given IV morphine with improvement of pain and is recommended for surgical intervention. CBC/BMP: 03/01/17 0850 02/28/17 0542 Significant Findings Laboratory Tests Test 02/28/17 05:42 02/28/17 07:13 03/01/17 08:50 Neutrophils (%) (Auto) 76.3 % (16.0-70.0) Monocytes (%) (Auto) 9.0 % (0.0-8.0) 10.6 % (0.0-8.0) Basophils (%) (Auto) 3.0 % (0.0-2.0) Lymphocytes # (Auto) 0.5 TH/MM3 (1.0-4.8) Prothrombin Time 9.6 SEC (9.8-11.6) Random Glucose 216 MG/DL (74-106) Aspartate Amino Transf (AST/SGOT) 56 U/L (15-37) Sodium Level 135 MEQ/L (136-145) Estimat Glomerular Filtration Rate 84 ML/MIN (>89) Troponin I LESS THAN 0.02 NG/ML B-Hydroxybutyrate 0.82 MMOL/L (0.00-0.39) Urine Glucose (UA) 500 mg/dL (NEG) Urine Ketones TRACE mg/dL (NEG) Urine Bacteria RARE /hpf (NONE) White Blood Count 3.9 TH/MM3 (4.0-11.0) Red Blood Count 3.49 MIL/MM3 (4.00-5.30) Hemoglobin 10.7 GM/DL (11.6-15.3) Hematocrit 33.2 % (35.0-46.0) Platelet Count 112 TH/MM3 (150-450) Imaging Last Impressions Abdomen/Pelvis CT 02/28/17516 Signed Impressions: Service Date/Time: February 07:23 - CONCLUSION: 1. CT findings consistent with early or mild acute appendicitis in the proper clinical setting. 2. Bilateral ovarian cysts. Previous hysterectomy. There is no free fluid or perceptible adnexal inflammatory changes. Hira Zhang MD Chest X-Ray 02/28/17510 Signed Impressions: Service Date/Time: February 05:46 - CONCLUSION: Hyperinflation suggesting COPD. No acute infiltrate or effusion. Lyle Terry Jr., MD PE at Discharge GENERAL: This is a well-nourished, well-developed patient, in no apparent distress. CARDIOVASCULAR: Regular rate and rhythm without murmurs, gallops, or rubs. RESPIRATORY: Clear to auscultation. Breath sounds equal bilaterally. No wheezes , rales, or rhonchi. GASTROINTESTINAL: Abdomen soft, non-tender, nondistended. Normal active bowel sounds MUSCULOSKELETAL: Extremities without clubbing, cyanosis, or edema. NEURO: Alert & Oriented x4 to person, place, time, situation. Moves all ext x4 Pt update on day of discharge doing better post op Diet tolerated DC plans discussed Hospital Course Patient seen for abd pain and found to have appendicitis. She had an appendectomy. Her BG was controlled She was discharged home Pt Condition on Discharge: Good Discharge Disposition: Discharge Home Discharge Time: <= 30 minutes Discharge Instructions DIET: Follow Instructions for: As Tolerated, No Restrictions Activities you can perform: Regular-No Restrictions Follow up Referrals: Surgical - 2 Weeks with Vamsi Alvarez MD New Medications: Sennosides-Docusate Sodium (Gnp Senna Plus 8.6-50 mg) 8.6 Mg-50 Mg Tab 2 TAB PO BID for Constipation, #62 TAB Continued Medications: Duloxetine DR (Cymbalta DR) 30 Mg Capdr 30 MG PO DAILY, #30 CAP 0 Refills Insulin Aspart Inj (Novolog Inj) 1,000 Unit/10 Ml Vial 0 SQ DIRECTED for Blood Sugar Management, #10 ML 0 Refills Sliding Scale as directed. Levothyroxine (Tirosint) 125 Mcg Cap 125 MCG PO DAILY for Thyroid, #30 CAP 0 Refills Tramadol (Tramadol) 50 Mg Tab 50 MG PO Q4H PRN for PAIN, TAB 0 Refills Discontinued Medications: Sulfamethoxazole-Trimethoprim (Bactrim DS) 800-160 Mg Tab 1 TAB PO BID for Infection, #20 TAB 0 Refills Ellie Ann MD Mar 01, 2017 11:37
--- NOTE | 2017-03-01 21:00 | HHI.PR ---
Subjective Subjective Notes tolerating diet, incisional pain, no issue Objective Vitals/I&O Vital Signs Date Time Temp Pulse Resp B/P (MAP) Pulse Ox O2 Delivery O2 Flow Rate FiO2 03/01/17 08:00 98.5 76 18 99/62 (74) 97 02/28/17 16:38 Room Air 02/28/17 16:01 2 Labs Laboratory Tests Test 03/01/17 08:50 White Blood Count 3.9 Red Blood Count 3.49 Hemoglobin 10.7 Hematocrit 33.2 Mean Corpuscular Volume 95.2 Mean Corpuscular Hemoglobin 30.7 Mean Corpuscular Hemoglobin Concent 32.3 Red Cell Distribution Width 12.9 Platelet Count 112 Mean Platelet Volume 7.7 Neutrophils (%) (Auto) 62.5 Lymphocytes (%) (Auto) 25.6 Monocytes (%) (Auto) 10.6 Eosinophils (%) (Auto) 0.4 Basophils (%) (Auto) 0.9 Neutrophils # (Auto) 2.5 Lymphocytes # (Auto) 1.0 Monocytes # (Auto) 0.4 Eosinophils # (Auto) 0.0 Basophils # (Auto) 0.0 CBC Comment DIFF FINAL Differential Comment Date/Time Source Procedure Growth Status 02/28/17 05:42 Throat Group A Streptococcus Screen - Preliminary NO BETA STREPTOCOCCI ISOLATED AT 24 H... Resulted Abdomen: Other (soft incisions c/d/i) A/P Assessment and Plan POD 1 lap appy PLAN reg diet oob pain control d/c home today Vamsi Alvarez MD Mar 01, 2017 21:00
--- NOTE | 2017-03-01 23:16 | EKG ---
Date Performed: 02/28/2017 Time Performed: 05:23:35 PTAGE: 51 years EKG: SINUS TACHYCARDIA WITH SHORT LA INTERVAL POSSIBLE LEFT ATRIAL ENLARGEMENT ABNORMAL RHYTHM E CG NO PREVIOUS TRACING DOCTOR: Angelica Higgins Interpretating Date/Time 03/01/2017 23:15:26
== END 2017-03-01 12:08 | disposition home or self-care (01) | DRG 343 ==
LOC: PHED 04:56 → PHEDA 08:22 → PH3A 11:49
PROVIDERS: ADMIT Hospitalist; ATTEND Hospitalist
PROC: 0DTJ4ZZ Resection of Appendix, Percutaneous Endoscopic Approach (ICD-10-PCS; principal; 2017-02-28 15:07)
DX: K35.80 Unspecified acute appendicitis (principal); E03.8 Other specified hypothyroidism; E10.9 Type 1 diabetes mellitus without complications; Z79.4 Long term (current) use of insulin; Z96.41 Presence of insulin pump (external) (internal); M79.7 Fibromyalgia
CPT/HCPCS: 71045; 74177; 80053; 81001; 82010; 82550; 82948; 83690; 83735; 84484; 85025; 85610; 85730; 87081; 87804; 87880; 88304; 93005; 96361; 96374; J0295; J1815; J1885; J2270; J2405; J2550; J7030; Q9963; Q9967